=== PATIENT | male | born 1995 | race African-American/Black ===

== ENCOUNTER 2016-11-09 12:36 | Emergency (ER) | payer OTHER ==
[~2016-11-09] VITALS: Ht 180.3 cm; Wt 61.2 kg
== END 2016-11-09 17:39 | disposition home or self-care (01) ==
LOC: CED 12:36
DX: F32.9 Major depressive disorder, single episode, unspecified (principal); F41.9 Anxiety disorder, unspecified; F17.210 Nicotine dependence, cigarettes, uncomplicated
CPT/HCPCS: 99285